=== PATIENT | female | born 1995 | race Caucasian/White ===

== ENCOUNTER 2020-08-10 00:48 | Emergency (ER) | payer OTHER ==
[~2020-08-10] VITALS: Ht 152.4 cm; Wt 46.0 kg
[2020-08-10] MEDS ORDERED: MORPHINE SULFATE 2 MG/ML CPJ (NOT FOR IM USE) IV ONE (02:00)
[2020-08-10] MEDS ORDERED: SODIUM CHLORIDE 0.9% 1,000 ML IV ONE ×2 (02:00→05:00)
[2020-08-10 02:02] LABS: BASOPHILS % 0.4 % (0.0-2.0); EOSINOPHILS % 0.5 % (0.0-5.0); HEMATOCRIT. 44.8 % (36.0-48.0); HEMOGLOBIN. 15.7 g/dL (12.0-16.0); LYMPHOCYTES % 11.2 % (20.0-50.0); MEAN CORPUSCULAR HEMOGLOBIN 30.1 pg (28.0-32.0); MEAN CORPUSCULAR VOLUME 86.1 fL (81.0-99.0); MEAN PLATELET VOLUME 8.7 fl (7.4-10.4); MONOCYTES % 11.2 % (2.0-8.0); NEUTROPHILS % 76.7 % (40.0-76.0); PLATELET 305 x1000/uL (130-400); RED BLOOD CELL COUNT 5.21 mill/uL (4.2-5.4); RED CELL DISTRIBUTION WIDTH 13.4 % (11.6-14.6)
[2020-08-10 02:03] LABS: CLARITY URINE CLEAR (CLEAR); COLOR URINE YELLOW (YELLOW); KETONES URINE NEGATIVE (NEGATIVE); LEUKOCYTE ESTERASE URINE NEGATIVE (NEGATIVE); NITRITE URINE NEGATIVE (NEGATIVE); OCCULT BLOOD URINE NEGATIVE (NEGATIVE); PROTEIN URINE NEGATIVE (NEGATIVE); SPECIFIC GRAVITY URINE 1.011 (1.005-1.030); UROBILINOGEN URINE 0.2 E.U./dL (0.2-1.0)
[2020-08-10 02:04] LABS: CHLORIDE 106 mEq/L (98-107)
[2020-08-10 02:08] LABS: PROTHROMBIN TIME 10.7 sec (9.6-11.0)
[2020-08-10 02:10] LABS: HCG SCREEN NEGATIVE
[2020-08-10] MEDS ORDERED: IOHEXOL-300 100 ML BOTTLE ONE (02:53)
[2020-08-10] MEDS ORDERED: POTASSIUM CHLORIDE 20MEQ TABLET SR PO ONE (03:30)
[2020-08-10] MEDS ORDERED: MORPHINE SULFATE 4 MG/ML CPJ (NOT FOR IM USE) IV STA (04:48)
[2020-08-10] MEDS ORDERED: IBUP-2028 MT (05:30)
[2020-08-10] MEDS ORDERED: HYDR-4346 MT (05:30)
[2020-08-10 06:13] VITALS: BP 102/70
== END 2020-08-10 06:15 | disposition home or self-care (01) ==
LOC: ER 00:48
DX: D36.7 Benign neoplasm of other specified sites (principal); R10.9 Unspecified abdominal pain
CPT/HCPCS: 36415; 74177; 76830; 76856; 80053; 81003; 81025; 83690; 84703; 85025; 85610; 96361; 96374; 96376; 99285; J2270; J7030; Q9967; Z7610

== ENCOUNTER 2021-06-25 01:16 | Emergency (ER) | payer MEDICAID, OTHER ==
[~2021-06-25] VITALS: Ht 152.4 cm; Wt 45.0 kg
[~2021-06-25 01:16] MED LIST: HYDR-4346 MT; IBUP-2028 MT
[2021-06-25 01:17] VITALS: BP 113/67
[2021-06-25] MEDS ORDERED: ACETAMINOPHEN 325MG TABLET PO STA (01:25)
[2021-06-25] MEDS ORDERED: FAMOTIDINE 20MG TABLET PO ONE (01:30)
[2021-06-25 01:50] LABS: BASOPHILS % 0.1 % (0.0-2.0); EOSINOPHILS % 1.5 % (0.0-5.0); HEMATOCRIT. 38.8 % (36.0-48.0); HEMOGLOBIN. 13.7 g/dL (12.0-16.0); LYMPHOCYTES % 12.8 % (20.0-50.0); MEAN CORPUSCULAR VOLUME 87.8 fL (81.0-99.0); MONOCYTES % 8.1 % (2.0-8.0); NEUTROPHILS % 77.5 % (40.0-76.0); PLATELET 325 x1000/uL (130-400); RED BLOOD CELL COUNT 4.42 mill/uL (4.2-5.4); RED CELL DISTRIBUTION WIDTH 14.1 % (11.6-14.6)
[2021-06-25 01:58] LABS: CHLORIDE 108 mEq/L (98-107)
[2021-06-25] MEDS ORDERED: IBUP-2029 MT (02:35)
[2021-06-25] MEDS ORDERED: DEXAMETHASONE 0.5MG/5ML ORAL SYR PO ONE (02:45)
[2021-06-25] MEDS ORDERED: MAGNESIUM/ALUMINUM HYDROXIDE/SIMETHICONE 30ML UDC PO STA (02:55)
[2021-06-25] MEDS ORDERED: DICYCLOMINE 10 MG/5 ML ORAL SYR PO STA (02:55)
[2021-06-25] MEDS ORDERED: OMEP20TA2 MT (02:57)
[2021-06-25] MEDS ORDERED: DEXAMETHASONE 6MG TABLET PO NR (03:00)
== END 2021-06-25 03:13 | disposition home or self-care (01) ==
LOC: ER 01:35
DX: J02.9 Acute pharyngitis, unspecified (principal); R10.13 Epigastric pain; R07.89 Other chest pain
CPT/HCPCS: 36415; 71045; 80053; 84484; 85025; 93005; 99285; J8540

== ENCOUNTER 2021-08-29 20:10 | Emergency (ER) | payer OTHER ==
[~2021-08-29] VITALS: Ht 152.4 cm; Wt 45.0 kg
[~2021-08-29 20:10] MED LIST changes: +IBUP-2029 MT; +OMEP20TA2 MT
[2021-08-29] MEDS ORDERED: MAGNESIUM/ALUMINUM HYDROXIDE/SIMETHICONE 30ML UDC PO STA (21:51)
[2021-08-29] MEDS ORDERED: HYDROCODONE/ACETAMINOPHEN 5/325MG TABLET PO STA (21:51)
[2021-08-29 22:17] VITALS: BP 94/59
[2021-08-29 22:27] LABS: BASOPHILS % 0.5 % (0.0-2.0); EOSINOPHILS % 3.1 % (0.0-5.0); HEMATOCRIT. 40.2 % (36.0-48.0); HEMOGLOBIN. 14.2 g/dL (12.0-16.0); LYMPHOCYTES % 32.4 % (20.0-50.0); MEAN CORPUSCULAR VOLUME 88.2 fL (81.0-99.0); MEAN PLATELET VOLUME 8.4 fl (7.4-10.4); PLATELET 283 x1000/uL (130-400); RED BLOOD CELL COUNT 4.56 mill/uL (4.2-5.4); RED CELL DISTRIBUTION WIDTH 14.1 % (11.6-14.6)
[2021-08-29 22:32] LABS: CHLORIDE 108 mEq/L (98-107)
[2021-08-29 22:41] LABS: HCG SCREEN NEGATIVE
[2021-08-30] MEDS ORDERED: METO-293 MT (00:06)
== END 2021-08-30 00:23 | disposition home or self-care (01) ==
LOC: ER 20:10
DX: K80.20 Calculus of gallbladder without cholecystitis without obstruction (principal)
CPT/HCPCS: 36415; 76705; 80053; 81025; 84703; 85025; 99284

== ENCOUNTER 2021-09-10 08:29 | Emergency (ER) | payer OTHER ==
[~2021-09-10] VITALS: Ht 152.4 cm; Wt 45.0 kg
[~2021-09-10 08:29] MED LIST changes: +METO-293 MT
[2021-09-10] MEDS ORDERED: ACETAMINOPHEN 325MG TABLET PO STA (09:13)
[2021-09-10] MEDS ORDERED: IBUPROFEN 600MG TABLET PO STA (09:13)
[2021-09-10] MEDS ORDERED: SODIUM CHLORIDE 0.9% 1000ML BAG (SEPSIS BOLUS) IV ONE (09:15)
[2021-09-10 10:00] LABS: HEMATOCRIT. 42.3 % (36.0-48.0); HEMOGLOBIN. 14.7 g/dL (12.0-16.0); MEAN CORPUSCULAR VOLUME 89.1 fL (81.0-99.0); MEAN PLATELET VOLUME 8.4 fl (7.4-10.4); PLATELET 265 x1000/uL (130-400); RED BLOOD CELL COUNT 4.75 mill/uL (4.2-5.4); RED CELL DISTRIBUTION WIDTH 13.9 % (11.6-14.6)
[2021-09-10 10:08] LABS: CHLORIDE 107 mEq/L (98-107)
[2021-09-10 10:25] LABS: HCG SCREEN NEGATIVE
[2021-09-10] MEDS ORDERED: CEFTRIAXONE 1 G PREMIX 50 ML IV ONE (11:30)
[2021-09-10] MEDS ORDERED: DEXAMETHASONE 10 MG/ML VIAL IV ONE (11:30)
[2021-09-10] MEDS ORDERED: IBUP-2028 MT (12:07)
[2021-09-10] MEDS ORDERED: AMOX-494 MT (12:07)
[2021-09-10 12:11] LABS: CLARITY URINE CLEAR (CLEAR); COLOR URINE YELLOW (YELLOW); KETONES URINE 1+ (NEGATIVE); LEUKOCYTE ESTERASE URINE TRACE (NEGATIVE); NITRITE URINE NEGATIVE (NEGATIVE); OCCULT BLOOD URINE NEGATIVE (NEGATIVE); PROTEIN URINE NEGATIVE (NEGATIVE); SPECIFIC GRAVITY URINE 1.009 (1.005-1.030); UROBILINOGEN URINE 0.2 E.U./dL (0.2-1.0)
[2021-09-10] MEDS ORDERED: POTASSIUM CHLORIDE 20MEQ TABLET SR PO ONE (12:15)
[2021-09-10 12:37] LABS: PLATELET ESTIMATE NORMAL
[2021-09-10 13:36] VITALS: BP 84/43
[2021-09-10] MEDS ORDERED: CEFTRIAXONE 1,000 MG in DEXTROSE 5% WATER 50 ML IV NR (13:45)
== END 2021-09-10 15:09 | disposition home or self-care (01) ==
LOC: ER 08:29
DX: J02.0 Streptococcal pharyngitis (principal); N39.0 Urinary tract infection, site not specified; E87.6 Hypokalemia; I95.9 Hypotension, unspecified; R00.0 Tachycardia, unspecified; Z20.822 Contact with and (suspected) exposure to COVID-19
CPT/HCPCS: 36415; 71045; 80053; 81003; 83605; 84703; 85025; 87426; 87430; 87804; 93005; 96361; 96365; 96375; 99285; J0696; J1100; J7030; J7060

== ENCOUNTER 2021-11-01 17:47 | Emergency (ER) | payer OTHER ==
[~2021-11-01] VITALS: Ht 152.4 cm; Wt 46.0 kg
[~2021-11-01 17:47] MED LIST changes: +AMOX-494 MT; -OMEP20TA2 MT; +OMEP20TA23 MT
[2021-11-01 18:41] LABS: BASOPHILS % 0.4 % (0.0-2.0); EOSINOPHILS % 4.1 % (0.0-5.0); HEMATOCRIT. 42.8 % (36.0-48.0); HEMOGLOBIN. 14.7 g/dL (12.0-16.0); MEAN CORPUSCULAR HEMOGLOBIN 30.4 pg (28.0-32.0); MEAN CORPUSCULAR VOLUME 88.2 fL (81.0-99.0); MEAN PLATELET VOLUME 8.5 fl (7.4-10.4); MONOCYTES % 11.1 % (2.0-8.0); NEUTROPHILS % 55.4 % (40.0-76.0); PLATELET 278 x1000/uL (130-400); RED BLOOD CELL COUNT 4.85 mill/uL (4.2-5.4); RED CELL DISTRIBUTION WIDTH 13.9 % (11.6-14.6)
[2021-11-01 19:00] LABS: CHLORIDE 105 mEq/L (98-107)
[2021-11-01 19:13] LABS: HCG SCREEN NEGATIVE
[2021-11-01 23:20] LABS: CLARITY URINE CLEAR (CLEAR); COLOR URINE YELLOW (YELLOW); KETONES URINE NEGATIVE (NEGATIVE); LEUKOCYTE ESTERASE URINE TRACE (NEGATIVE); NITRITE URINE NEGATIVE (NEGATIVE); OCCULT BLOOD URINE NEGATIVE (NEGATIVE); PH URINE 5.5 (4.5-8.0); PROTEIN URINE NEGATIVE (NEGATIVE); UROBILINOGEN URINE 0.2 E.U./dL (0.2-1.0)
[2021-11-02 00:50] LABS: *AMPHETAMINES SCREEN URINE NEGATIVE (NEGATIVE); *BARBITURATES SCREEN URINE NEGATIVE (NEGATIVE); *BENZODIAZEPINES SCREEN URINE NEGATIVE (NEGATIVE); *COCAINE SCREEN URINE NEGATIVE (NEGATIVE); CANNABINOID URINE SCREEN NEGATIVE (NEGATIVE); METHADONE URINE SCREEN NEGATIVE (NEGATIVE); OPIATES URINE SCREEN NEGATIVE (NEGATIVE); PHENCYCLIDINE URINE SCREEN NEGATIVE (NEGATIVE)
[2021-11-02 02:34] VITALS: BP 105/73
== END 2021-11-02 02:36 | disposition home or self-care (01) ==
LOC: ER 17:47
DX: F41.0 Panic disorder [episodic paroxysmal anxiety] (principal); R42 Dizziness and giddiness; Z79.899 Other long term (current) drug therapy
CPT/HCPCS: 36415; 71045; 80053; 80305; 81003; 81025; 84484; 84703; 85025; 93005; 99285

== ENCOUNTER 2022-06-22 09:25 | Emergency (ER) | payer OTHER ==
[~2022-06-22] VITALS: Ht 160 cm; Wt 70.0 kg
[2022-06-22 09:29] VITALS: BP 105/70
[2022-06-22] MEDS ORDERED: VISCOUS LIDOCAINE 2% 15 ML UDC PO STA (10:08)
[2022-06-22] MEDS ORDERED: MAGNESIUM/ALUMINUM HYDROXIDE/SIMETHICONE 30ML UDC PO STA (10:08)
[2022-06-22] MEDS ORDERED: ONDANSETRON HCL 4MG TABLET PO ONE (10:15)
[2022-06-22] MEDS ORDERED: FAMOTIDINE 20MG TABLET PO ONE (10:15)
[2022-06-22 10:25] LABS: CLARITY URINE TURBID (CLEAR); COLOR URINE YELLOW (YELLOW); KETONES URINE NEGATIVE (NEGATIVE); LEUKOCYTE ESTERASE URINE 1+ (NEGATIVE); NITRITE URINE NEGATIVE (NEGATIVE); OCCULT BLOOD URINE NEGATIVE (NEGATIVE); PH URINE >=9.0 (4.5-8.0); PROTEIN URINE TRACE (NEGATIVE); SPECIFIC GRAVITY URINE 1.018 (1.005-1.030); UROBILINOGEN URINE 0.2 E.U./dL (0.2-1.0)
[2022-06-22 10:38] LABS: BASOPHILS % 0.3 % (0.0-2.0); EOSINOPHILS % 1.7 % (0.0-5.0); HEMATOCRIT. 44.1 % (36.0-48.0); HEMOGLOBIN. 15.2 g/dL (12.0-16.0); LYMPHOCYTES % 29.7 % (20.0-50.0); MEAN CORPUSCULAR HEMOGLOBIN 31.2 pg (28.0-32.0); MEAN CORPUSCULAR VOLUME 90.4 fL (81.0-99.0); MEAN PLATELET VOLUME 8.2 fl (7.4-10.4); MONOCYTES % 9.4 % (2.0-8.0); NEUTROPHILS % 58.9 % (40.0-76.0); PLATELET 331 x1000/uL (130-400); RED BLOOD CELL COUNT 4.88 mill/uL (4.2-5.4); RED CELL DISTRIBUTION WIDTH 13.2 % (11.6-14.6)
[2022-06-22 10:42] LABS: CHLORIDE 106 mEq/L (98-107)
[2022-06-22 10:53] LABS: HCG SCREEN NEGATIVE
[2022-06-22] MEDS ORDERED: MAG-55 MT (12:18)
[2022-06-22] MEDS ORDERED: FAMO-135 MT (12:19)
== END 2022-06-22 12:53 | disposition home or self-care (01) ==
LOC: ER 09:25
DX: R10.9 Unspecified abdominal pain (principal)
CPT/HCPCS: 36415; 80053; 81003; 81025; 83690; 84703; 85025; 99284; Q0162

== ENCOUNTER 2022-07-12 16:19 | Emergency (ER) | payer OTHER ==
[~2022-07-12] VITALS: Ht 152.4 cm; Wt 54.0 kg
[~2022-07-12 16:19] MED LIST changes: +FAMO-135 MT; +MAG-55 MT
[2022-07-12 16:26] VITALS: BP 98/57
[2022-07-12] MEDS ORDERED: DICYCLOMINE HCL 10MG CAPSULE PO ONE (17:30)
[2022-07-12] MEDS ORDERED: MAGNESIUM/ALUMINUM HYDROXIDE/SIMETHICONE 30ML UDC PO ONE (17:30)
== END 2022-07-12 22:36 | disposition left against medical advice (07) ==
LOC: ER 16:29
DX: R10.13 Epigastric pain (principal); Z53.21 Procedure and treatment not carried out due to patient leaving prior to being seen by health care provider
CPT/HCPCS: 93005; 99281